=== PATIENT | female | born 1955 | race Caucasian/White ===

== ENCOUNTER 2016-06-05 19:07 | Emergency (ER) | payer OTHER ==
[2016-10-17] MEDS ORDERED: REVLIMID25 MG PO (23:00)
[2016-10-17] MEDS ORDERED: COUMADIN4 MG PO (23:02)
[2016-10-17] MEDS ORDERED: DEXAMETHASONE 44 MG PO (23:02)
[2016-10-17] MEDS ORDERED: IBUPROFEN800 MG PO (23:03)
[2016-10-17] MEDS ORDERED: ZOVIRAX 200 MG200 MG PO (23:03)
[2016-10-17] MEDS ORDERED: PHENYTOIN SODI200 MG PO (23:04)
[2016-10-17] MEDS ORDERED: NEURONTIN 300300 MG PO (23:05)
[2016-10-17] MEDS ORDERED: MORPHINE SULFAT60 M1 PO (23:06)
== END 2016-06-05 21:23 | disposition home or self-care (01) ==
LOC: ER1 19:07
DX: R79.1 Abnormal coagulation profile (principal); F17.210 Nicotine dependence, cigarettes, uncomplicated; C90.00 Multiple myeloma not having achieved remission; Z79.01 Long term (current) use of anticoagulants
CPT/HCPCS: 36415; 85610; 85730; 99283; J3430